=== PATIENT | female | born 1985 | race Hispanic/Latino ===

== ENCOUNTER 2019-03-04 20:43 | Emergency (ER) | payer OTHER ==
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
== END 2019-03-05 02:00 | disposition left against medical advice (07) ==
LOC: ED 20:43
DX: M54.9 Dorsalgia, unspecified (principal); Z53.21 Procedure and treatment not carried out due to patient leaving prior to being seen by health care provider
CPT/HCPCS: 72070